=== PATIENT | male | born 1980 | race Two or more races ===

== ENCOUNTER → 2023-04-13 | Emergency (ER) | payer OTHER ==
[~2023-04-13] VITALS: Ht 175.3 cm; Wt 81.6 kg
[~2023-04-13] MED LIST: INTESTINEX680 M1 PO; KETO10TA2 PO; PEPCID AC20 MG PO
[2023-04-13 20:04] LABS: HEMATOCRIT 39.5 % (39.0-48.0); HEMOGLOBIN 13.7 g/dL (13-16.00); MEAN CELL VOLUME 86.1 fL (80.0-100.00); MEAN CORPUSCULAR HEMOGLOBIN 29.9 pg (27.00-32.0); MEAN CORPUSCULAR HGB CONC 34.7 g/dl (32.0-36.0); PLATELET COUNT 201 K/uL (150-450); RED BLOOD COUNT 4.58 M/uL (4.00-6.00); RED CELL DISTRIBUTION WIDTH 13.3 % (11.5-14.5)
[2023-04-13 20:21] LABS: URINE APPEARANCE Clear; URINE BILIRRUBIN Negative (NEGATIVE); URINE BLOOD Negative; URINE COLOR Yellow; URINE GLUCOSE Negative (NEGATIVE); URINE LEUKOCYTE Negative; URINE NITRATE Negative; URINE PROTEIN Negative (NEGATIVE)
[2023-04-13 20:23] LABS: CALCIUM 9.1 mg/dL (8.5-10.1); CREATININE SERUM 0.99 mg/dL (0.70-1.30); GFR 82.5; POTASSIUM 4.1 mEq/L (3.5-5.1)
[2023-04-13 20:23] LABS: URINE RBC 11.3 uL (0.0-20.8); URINE WBC 3.2 uL (0.0-23.2)
[2023-04-13 20:26] LABS: URINE EPITHELIAL CELLS 1.3 uL (0.0-38.8)
[2023-04-13 20:27] LABS: URINE BACTERIA 1.2 uL (0.0-1933)
== END | disposition home or self-care (01) ==
LOC: ER 17:08
PROVIDERS: Nurse Practitioner Family
DX: R11.10 Vomiting, unspecified (principal); K52.0 Gastroenteritis and colitis due to radiation